=== PATIENT | female | born 1945 | race Caucasian/White ===

== ENCOUNTER 2017-05-15 07:06 | Emergency (ER) | payer OTHER ==
[2017-05-15 07:20] VITALS: BP 149/80; PULSE 60; RESP 20; TEMP 98.9; O2SAT 95
[2017-05-15] MEDS ORDERED: TDAP ADULT 0.5 ML INJ (BOOSTRIX) IM ONE (07:44)
--- NOTE | 2017-05-15 07:47 | EDPHY ---
H & P Time Seen by Provider: 05/15/17 07:15 HPI/ROS: This patient complains of a spider bite to the left medial knee. She went to sleep feeling fine but awakened with a painful red papule to the left medial knee with surrounding erythema and burning discomfort 7/10 in intensity. Her found spider in the bed and brought in in bag. She is concerned about the location of the bite because of proximity to her complete knee replacement performed approximately 6 months ago. The patient also plans to have a dental procedure in 3 days and was told to take Amoxil prophylactically. She is concerned about skin infection to the area surrounding the spider bite. No other associated symptoms. She is brought in by her by private vehicle. ROS: Constitutional: No fevers or chills. HEENT: No complaints Pulmonary: No complaints. No shortness of breath Cardiovascular: No complaints Integumentary: No skin rash elsewhere or proximal streaking. No itching Neuro: No headache or confusion. GI: No abdominal pain or vomiting. 10 point ROS is otherwise negative Past Medical/Surgical History: Total knee replacement-left knee Hypertension Hyperlipidemia Smoking Status: Never smoked Physical Exam: Physical Exam Vital signs are normal. General: No acute distress Eyes: Pupils equal and react to light. Extraocular motions are intact. Lungs: No respiratory distress. Cardiac: Brisk capillary refill is intact throughout. Skin: There is erythematous papule to the left medial knee surrounded by erythema total diameter approximately 5 cm with mild warmth to touch. No fluctuance. No foreign bodies evident with evaluation with magnifying loops. Neuro: Alert with no sensorimotor deficits. Differential diagnosis: Insect bite with local irritation, early cellulitis, allergic reaction to insect bite Constitutional: Initial Vital Signs Temperature (C) 37.2 C 05/15/17 07:17 Heart Rate 60 05/15/17 07:17 Respiratory Rate 20 05/15/17 07:17 Blood Pressure 149/80 H 05/15/17 07:17 O2 Sat (%) 95 05/15/17 07:17 O2 Delivery Mode Room Air Allergies/Adverse Reactions: No Known Allergies Allergy (Verified 05/15/17 07:21) Home Medications: Medication Instructions Recorded Lipitor 10 mg (RX) 01/01/14 Travatan Z 0.004% (RX) 10/04/14 FIBER CHOICE 02/02/15 Vitamin D3 (OTC) 02/02/15 Lisinopril 07/26/16 Cephalexin [Keflex (*)] 500 mg PO TID #31 cap 05/15/17 MDM/Departure - MDM Medications Given: Discontinued Medications Diphtheria/Tetanus/Acell Pertussis (Boostrix) 0.5 ml IM .ONCE ONE Stop: 05/15/17 07:45 Last Admin: 05/15/17 07:55 Dose: 0.5 ml ED Course/Re-evaluation: No evidence of systemic toxicity he/significant constitutional symptoms, no evidence of sepsis, no evidence of anaphylaxis. Symptoms are localized findings are localized to the cutaneous area adjacent to her knee without clinical evidence to suggest a septic knee or other concerning findings. Will start her on Keflex to cover early cellulitis with plan to use a Keflex and 2 g dose prior to her dental cleaning rather than the amoxicillin. We also updated her tetanus immunization and counseled regarding wound care - Depart Disposition: Home, Routine, Self-Care Clinical Impression: Insect bite Qualifiers: Encounter type: initial encounter Qualified Code(s): W57.XXXA - Bitten or stung by nonvenomous insect and other nonvenomous arthropods, initial encounter Cellulitis Qualifiers: Site of cellulitis: extremity Site of cellulitis of extremity: lower extremity Laterality: left Qualified Code(s): L03.116 - Cellulitis of left lower limb Condition: Good Instructions: Cellulitis (ED), Insect Bite or Sting (ED) Additional Instructions: Diagnoses: 1. Insect bite 2. Cellulitis Plan: Apply warm packs 3 times a day until the redness resolved Keflex antibiotic as directed Ibuprofen Tylenol for discomfort as needed. Return for any significant worsening despite the treatment Prescriptions: Cephalexin [Keflex (*)] 500 mg PO TID #31 cap Referrals: Mary De Jesus MD [Primary Care Provider] - As per Instructions
== END 2017-05-15 08:00 | disposition home or self-care (01) ==
LOC: CED 07:06
PROC: 3E0234Z Introduction of Serum, Toxoid and Vaccine into Muscle, Percutaneous Approach (ICD-10-PCS; principal; 2017-05-15)
DX: L03.116 Cellulitis of left lower limb (principal); I10 Essential (primary) hypertension; Z23 Encounter for immunization; W57.XXXA Bitten or stung by nonvenomous insect and other nonvenomous arthropods, initial encounter

== ENCOUNTER 2017-06-16 06:23 | Emergency (ER) | payer OTHER ==
[2017-06-16 06:34] LABS: COLOR YELLOW; LEUKOCYTE ESTERASE,URINE 1+ (NEGATIVE); NITRITE,URINE POSITIVE (NEGATIVE); PH,URINE 6.5 (5.0-7.5)
[2017-06-16 06:40] VITALS: RESP 18; TEMP 98.2
[2017-06-16 06:42] LABS: RBC,URINE 25-50 /hpf (0-3); WBC,URINE 15-25 /hpf (0-3)
[2017-06-16 06:43] LABS: BACTERIA 1+ /hpf (NONE SEEN)
--- NOTE | 2017-06-16 07:01 | EDPHY ---
H & P Smoking Status: Never smoked Time Seen by Provider: 06/16/17 06:32 HPI/ROS: CHIEF COMPLAINT: pain with urination and vulvar pain HISTORY OF PRESENT ILLNESS: symptoms began 9 days ago. She has had dysuria with frequency. She was seen by her PCP on Wednesday, 8 days ago. At that time her urine test was negative. She was subsequently notified 4 days later the urine culture was negative. However symptoms continued. In particular she is here today as she is having so much pain when she actually voice that she has to hold on. She points to her pelvic with of vulvar area. At the same token, there is no actual vulvar symptoms. Vis-a-vis she has not noted any lesions nor has she seen any vaginal discharge or discharge in her panties or blood. Finally, there is a continual pain which is intense when she urinates however. She notes that there is no abdominal pain. Prior history of appendectomy. Bilateral knee replacements, most recent one, left, in January by Dr. Meyers at [facility]. While she has had some chills she does not take home temperature reading. Here it was negative. REVIEW OF SYSTEMS: Constitutional: No fever although reports chills Gastrointestinal: No nausea vomiting or diarrhea. No abdominal pain. Genitourinary: See above Musculoskeletal: No back pain. Skin: No rashes. (César Cummings) Physical Exam: General Appearance: Alert, no distress. Afebrile. Normal phonation. No respiratory distress. Nontoxic Abdomen: Soft and nontender. No suprapubic tenderness Skin: Warm and dry, no rashes. Back: No CVAT . (César Cummings) Constitutional: Initial Vital Signs Temperature (C) 36.8 C 06/16/17 06:37 Heart Rate 73 06/16/17 06:37 Respiratory Rate 18 06/16/17 06:37 Blood Pressure 154/92 H 06/16/17 06:37 O2 Sat (%) 95 06/16/17 06:37 O2 Delivery Mode Room Air Allergies/Adverse Reactions: No Known Allergies Allergy (Verified 06/16/17 06:35) Home Medications: Medication Instructions Recorded Lipitor 10 mg (RX) 01/01/14 Travatan Z 0.004% (RX) 10/04/14 FIBER CHOICE 02/02/15 Vitamin D3 (OTC) 02/02/15 Lisinopril 07/26/16 Cephalexin 500 mg PO TID #21 tablet 06/16/17 Phenazopyridine HCl 200 mg PO Q8 #6 tablet 06/16/17 Medical Decision Making ED Course/Re-evaluation: Initial urinalysis showed contamination 2+ epithelial cells. At change of shift final urinalysis pending (César Cummings) Other Provider: Care turned over at shift change pending repeat urinalysis Urinalysis significant began for epithelial cells however also positive for bacteria large amount of red blood cells and white blood cells Patient with dysuria, burning with urination painful urination as well as frequency Prior history of UTI with greater than 100,000 colonies of E coli with exact same symptoms will treat despite epithelial cells. Impression Urinary tract infection Plan Keflex three times daily x7 days Pyridium three times daily x2 days Given 1st dose of each in emergency department Urine culture sent (Aimee More) - Data Points Medications Given: Discontinued Medications Cephalexin HCl (Keflex) 500 mg PO EDNOW ONE PRN Reason: Protocol Stop: 06/16/17 07:43 Last Admin: 06/16/17 07:49 Dose: 500 mg Phenazopyridine HCl (Pyridium) 200 mg PO EDNOW ONE Stop: 06/16/17 07:43 Last Admin: 06/16/17 07:49 Dose: 200 mg Departure - Departure Disposition: Home, Routine, Self-Care Clinical Impression: Urinary tract infection Condition: Good Instructions: Phenazopyridine (By mouth), Urinary Tract Infection in Women (ED) Referrals: NONE *PRIMARY CARE P,. [Primary Care Provider] - As per Instructions Prescriptions: Cephalexin 500 mg PO TID #21 tablet Phenazopyridine HCl 200 mg PO Q8 #6 tablet
[2017-06-16 07:11] LABS: COLOR YELLOW; LEUKOCYTE ESTERASE,URINE 1+ (NEGATIVE); NITRITE,URINE NEGATIVE (NEGATIVE)
[2017-06-16 07:19] LABS: RBC,URINE 50-182 /hpf (0-3); WBC,URINE 15-25 /hpf (0-3)
[2017-06-16 07:20] LABS: BACTERIA TRACE /hpf (NONE SEEN); MUCUS TRACE /lpf (NONE-1+)
[2017-06-16] MEDS ORDERED: PHENAZOPYRIDINE HCL 200 MG TAB PO ONE (07:42)
[2017-06-16] MEDS ORDERED: CEPHALEXIN 500 MG CAP PO ONE (07:42)
[2017-06-16 08:03] VITALS: BP 133/92; PULSE 72; O2SAT 93
== END 2017-06-16 08:01 | disposition home or self-care (01) ==
LOC: CED 06:23
DX: N39.0 Urinary tract infection, site not specified (principal); B96.20 Unspecified Escherichia coli [E. coli] as the cause of diseases classified elsewhere
CPT/HCPCS: 81003-PO; 81015-PO

== ENCOUNTER 2017-08-25 16:07 | Emergency (ER) | payer OTHER ==
[2017-08-25 16:32] VITALS: BP 171/89; PULSE 86; RESP 18; TEMP 98.4; O2SAT 92
[2017-08-25] MEDS ORDERED: cefTRIAXone 250 MG VIAL IM ONE (16:38)
--- NOTE | 2017-08-25 16:43 | EDPHY ---
H & P Time Seen by Provider: 08/25/17 16:15 HPI/ROS: CHIEF COMPLAINT: Dysuria and frequency History by patient HISTORY OF PRESENT ILLNESS: 9-year-old woman with history of hypertension and frequent urinary tract infections presents complaining of ongoing urgency and frequency. Patient was seen by her primary care physician 2 days ago and had a urine culture sent and was started on Pyridium and Keflex at that time. She has taken 3 doses of Keflex but she continues to have persistent symptoms and she was worried that she was on an inappropriate antibiotic. She has had some relief from the Pyridium. She had a fever of 99.92 days ago at home. She has had no vomiting. She denies any back pain. She has been feeling somewhat tired but otherwise well. She is concerned because she is going on a road trip tomorrow and she has been urinating every 30-45 minutes. REVIEW OF SYSTEMS: As in HPI, and all other systems reviewed and are negative Smoking Status: Never smoked Physical Exam: General Appearance: Alert, well-appearing, nontoxic. Eyes: Pupils equal and round no pallor or injection. ENT, Mouth: Mucous membranes moist. Respiratory: Normal, effort, lungs are clear to auscultation. No wheezes, rales or rhonchi. Cardiovascular: Regular rate and rhythm. S1, S2, no murmurs, gallops or rubs appreciated Gastrointestinal: Abdomen is soft and nontender, no masses, bowel sounds normal. Back: No CVA tenderness, no bony tenderness Neurological: Awake, alert and oriented x 3, no pronator drift, normal gait, no pronator drift Skin: Warm and dry, no rashes. Musculoskeletal: No deformities or tenderness. Extremitie:s full range of motion, no edema Psychiatric: Patient has normal affect, there is no agitation. Constitutional: Initial Vital Signs Temperature (C) 36.9 C 08/25/17 16:26 Heart Rate 86 08/25/17 16:26 Respiratory Rate 18 08/25/17 16:26 Blood Pressure 171/89 H 08/25/17 16:26 O2 Sat (%) 92 08/25/17 16:26 O2 Delivery Mode Room Air Allergies/Adverse Reactions: No Known Allergies Allergy (Verified 08/25/17 16:25) Home Medications: Medication Instructions Recorded Lipitor 10 mg (RX) 01/01/14 Travatan Z 0.004% (RX) 10/04/14 FIBER CHOICE 02/02/15 Vitamin D3 (OTC) 02/02/15 Lisinopril 07/26/16 Cephalexin 500 mg PO TID #21 tablet 06/16/17 Phenazopyridine HCl 200 mg PO Q8 #6 tablet 06/16/17 Phenazopyridine HCl [Pyridium] 100 mg PO TID PRN 2 Days tab 08/25/17 MDM/Departure - [facility] ED Course/Re-evaluation: 72-year-old woman presents with persistent UTI symptoms. I reviewed her labs and urine culture from 2 days ago grew out greater than 100,000 E coli sensitive to everything. I discussed this with the patient that her Keflex is appropriate and she will likely feel better she continues to take orally however I also offered her a dose of IM ceftriaxone. Patient opted for the IM ceftriaxone. She will resume her Keflex orally in 24 hours. Patient also requested more pyridium, which I have prescribed. Patient was also noted to have elevated blood pressure for which she does take medication. I recommended she have this recheck the primary care physician. - Depart Disposition: Home, Routine, Self-Care Clinical Impression: Urinary tract infection Qualifiers: Urinary tract infection type: site unspecified Hematuria presence: without hematuria Qualified Code(s): N39.0 - Urinary tract infection, site not specified Condition: Good Instructions: Urinary Tract Infection in Women (ED) Additional Instructions: You were seen by Dr. Louisa Perez today. Continue taking your Keflex beginning tomorrow evening. You may take Pyridium as needed for the next 24 hours. Return for any worsening or new concerns including but not limited to fever, vomiting or other worsening.. Prescriptions: Phenazopyridine HCl [Pyridium] 100 mg PO TID PRN 2 Days tab PRN Reason: Dysuria Referrals: Mary De Jesus MD [Primary Care Provider] - As per Instructions
[2017-08-25] MEDS ORDERED: cefTRIAXone 1 GM VIAL IM ONE (16:48)
[2017-08-25] MEDS ORDERED: LIDOCAINE 1% 5 ML SDV ONE (16:51)
== END 2017-08-25 17:07 | disposition home or self-care (01) ==
LOC: CED 16:07
DX: N39.0 Urinary tract infection, site not specified (principal)
CPT/HCPCS: 96372; 99284; J0696

== ENCOUNTER → 2019-04-27 | Outpatient (CLI) | payer OTHER | LOC: CIMAGING 16:01 ==